=== PATIENT | male | born 1995 | race Hispanic/Latino ===

== ENCOUNTER 2018-09-01 02:09 | Emergency (ER) | payer BC, OTHER ==
[2018-09-01 02:15] VITALS: RESP 18; TEMP 98.7
--- NOTE | 2018-09-01 02:49 | ED PDOC ---
HPI: Hypertension/Hypotension Chief Complaint (Provider): palpitations History Per: Patient History/Exam Limitations: no limitations Onset/Duration Of Symptoms: Mins Current Symptoms Are (Timing): Better Associated Symptoms: Chest Pain Quality Of Symptoms: Rapid Heart Rate Additional Complaint(s): 23 y/o male brought in by EMS for evaluation of palpitations x 30 mins. Patient states he woke up from his sleep due to his heart beating rapidly, states he also had difficulty breathing at that time and noted numbness to left leg. Patient states he then got up and walked outside and his left arm started to get numb so he called 911. Patient states numbness resolved within minutes, and heart rate seems to be slowing down, but now notes intermittent sharp pains to chest. Denies fever, headache, dizziness, extremity weakness, vomiting, abdominal pain, leg pain/swelling. Patient states this has [place] at an airport but never followed up with anybody. Patient traveling for work, flew in from [place] last week. <Crystal Jones - Last Filed: 09/01/18 04:52> <Orin Gay - Last Filed: 09/01/18 05:34> Time Seen by Provider: 09/01/18 02:35 Chief Complaint (Nursing): Palpitations Past Medical History Reviewed: Historical Data, Nursing Documentation, Vital Signs Vital Signs: Last Vital Signs Temp 98.7 F 09/01/18 02:13 Pulse 117 H 09/01/18 02:13 Resp 18 09/01/18 02:13 BP 160/103 H 09/01/18 02:13 Pulse Ox 100 09/01/18 02:13 - Medical History PMH: No Chronic Diseases - Surgical History Surgical History: No Surg Hx - Family History Family History: States: No Known Family Hx - Living Arrangements Living Arrangements: With Family - Social History Current smoker - smoking cessation education provided: No Alcohol: None Drugs: Denies <Crystal Jones - Last Filed: 09/01/18 04:52> Vital Signs: Last Vital Signs Temp 98.7 F 09/01/18 02:13 Pulse 117 H 09/01/18 02:13 Resp 18 09/01/18 02:13 BP 160/103 H 09/01/18 02:13 Pulse Ox 100 09/01/18 04:59 <Orin Gay Last Filed: 09/01/18 05:34> - Allergies Allergies/Adverse Reactions: Allergies Allergy/AdvReac Type Severity Reaction Status Date / Time doxycycline Allergy SWELLING Verified 09/01/18 02:13 Review of Systems ROS Statement: Except As Marked, All Systems Reviewed And Found Negative Cardiovascular: Positive for: Chest Pain, Palpitations <Crystal Jones C - Last Filed: 09/01/18 04:52> Physical Exam - Reviewed Nursing Documentation Reviewed: Yes Vital Signs Reviewed: Yes - Physical Exam Appears: Positive for: Well, Non-toxic, Uncomfortable (anxious-appearing) Head Exam: Positive for: ATRAUMATIC, NORMAL INSPECTION, NORMOCEPHALIC Skin: Positive for: Normal Color Eye Exam: Positive for: Normal appearance ENT: Positive for: Normal ENT Inspection Cardiovascular/Chest: Positive for: Regular Rate, Rhythm Respiratory: Positive for: Normal Breath Sounds Gastrointestinal/Abdominal: Positive for: Normal Exam Back: Positive for: Normal Inspection Extremity: Positive for: Normal ROM Neurologic/Psych: Positive for: Alert, Oriented (x3). 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, CT angio chest ordered <Crystal Jones C - Last Filed: 09/01/18 04:52> - Laboratory Results Result Diagrams: 09/01/18 03:10 09/01/18 03:10 - Progress Re-evaluation Time: 05:34 Condition: Re-examined, Improved <Orin Gay - Last Filed: 09/01/18 05:34> Disposition - Disposition Disposition Time: 05:00 Patient Signed Over To: Orin Gay Handoff Comments: pending CT <Crystal Jones C - Last Filed: 09/01/18 04:52> - Patient ED Disposition Is Patient to be Admitted: No Doctor Will See Patient In The: Office Counseled Patient/Family Regarding: Studies Performed, Diagnosis, Need For F ollowup - Disposition Disposition: Routine/Home Disposition Time: 05:34 <Orin Gay - Last Filed: 09/01/18 05:34> - Clinical Impression Clinical Impression: Palpitations, Chest pain - Disposition Condition: GOOD Additional Instructions: SHARON URBANO, thank you for letting us take care of you today. Your provider was Orin Gay MD and you were treated for PALPITATIONS. The emergency medical care you received today was directed at your acute symptoms. If you were prescribed any medication, please fill it and take as directed. It may take several days for your symptoms to resolve. Return to the Emergency Department if your symptoms worsen, do not improve, or if you have any other problems. Please contact your doctor or call one of the physicians/clinics you have been referred to that are listed on the Patient Visit Information form that is included in your discharge packet. Bring any paperwork you were given at discharge with you along with any medications you are taking to your follow up visit. Our treatment cannot replace ongoing medical care by a primary care prov ider outside of the emergency department. Thank you for allowing the [facility] team to be part of your care today. If you had an X-Ray or CT scan: A Radiologist will review the ED reading if any change in treatment is needed we will contact you. If you had a blood, urine, or wound culture: It will take several days for the results, if any change in treatment is needed we will contact you. If you had an STI test: It will take 48 hours for the results. Please call after 1 week if you have not heard back. Instructions: Chest Pain, Palpitations
[2018-09-01 03:16] LABS: BASO % 0.2 % (0.0-2.0); EOS # 0.2 K/uL (0.0-0.7); EOS % 2.3 % (0.0-4.0); LYMPH # 1.5 K/uL (1.0-4.3); LYMPH % 22.5 % (20.0-40.0); MEAN CORPUSCULAR HEMOGLOBIN 29.9 pg (27.0-31.0); MEAN CORPUSCULAR HGB CONC 33.9 g/dL (33.0-37.0); MEAN PLATELET VOLUME 10.4 fl (7.2-11.7); MONO # 0.6 K/uL (0.0-0.8); MONO % 8.2 % (0.0-10.0); NEUT # 4.6 K/uL (1.8-7.0); NEUT % 66.8 % (50.0-75.0); NRBC % 0.1 % (0.0-0.0); RBC 5.02 Mil/uL (4.40-5.90); RED CELL DISTRIBUTION WIDTH 13.4 % (11.5-14.5); WHITE BLOOD COUNT 6.9 K/uL (4.8-10.8)
[2018-09-01 03:24] LABS: ALB/GLOB RATIO 1.6 (1.0-2.1); ALBUMIN 4.5 g/dL (3.5-5.0); ALT/SGPT 36 U/L (21-72); AST/SGOT 27 U/L (17-59); BLOOD UREA NITROGEN 17 mg/dl (9-20); CALCIUM 9.3 mg/dL (8.4-10.2); GFR NON-AFRICAN AMERICAN > 60
[2018-09-01 03:41] LABS: BARBITURATES, UR NEGATIVE (NEGATIVE); BENZODIAZEPINES, UR NEGATIVE (NEGATIVE); OPIATES, UR NEGATIVE (NEGATIVE); PHENCYCLIDINE, UR NEGATIVE (NEGATIVE)
[2018-09-01] MEDS ORDERED: Iodixanol 320 MG/ML 100 ML BOTTLE IV ONE (03:46)
[2018-09-01] MEDS ORDERED: Sodium Chloride 0.9% 50 ML IV ONE (03:46)
[2018-09-01 05:49] VITALS: BP 135/78; PULSE 72; O2SAT 99
--- NOTE | 2018-09-01 09:44 | CT ---
Date of service: 09/01/2018 PROCEDURE: CT Chest with contrast (Pulmonary Angiogram) HISTORY: chest pain, palpitations COMPARISON: None available. TECHNIQUE: Axial computed tomography images were obtained of the chest in the pulmonary arterial phase of enhancement. Coronal and sagittal reformatted images were created and reviewed. Intravenous contrast dose: 95 mL Visipaque 320 Radiation dose: Total exam DLP = 409.37 mGy-cm. This CT exam was performed using one or more of the following dose reduction techniques: Automated exposure control, adjustment of the mA and/or kV according to patient size, and/or use of iterative reconstruction technique. FINDINGS: PULMONARY ARTERIES: There are no filling defects in the pulmonary arteries to suggest acute pulmonary embolism. AORTA: No acute findings. No thoracic aortic aneurysm. No aortic atherosclerotic calcification or mural plaque present. LUNGS: The lungs are well inflated. There is dependent atelectasis in the lung bases. No nodule, mass or pulmonary consolidation. PLEURAL SPACES: No effusion or pneumothorax. HEART: No cardiomegaly. No significant pericardial effusion. LYMPH NODES: No lymphadenopathy. BONES, CHEST WALL: Within normal limits for the patient's age. No fracture or destructive lesion OTHER FINDINGS: Unremarkable. IMPRESSION: No CT evidence for acute pulmonary embolism. Clear lungs. A preliminary report was provided by [facility].
== END 2018-09-01 05:47 | disposition home or self-care (01) ==
LOC: H.ER 02:09
DX: R07.89 Other chest pain (principal); R00.2 Palpitations; R20.2 Paresthesia of skin
CPT/HCPCS: 71275; 80053; 84443; 84484; 85025; 85378; 99283; G0480; Q9967